=== PATIENT | female | born 1985 | race American Indian/Alaskan Native ===

== ENCOUNTER 2021-09-09 09:45 | Outpatient (CLI) | payer MEDICAID ==
--- NOTE | 2021-09-09 13:39 | Fluoroscopy Report ---
UPPER GI HISTORY: R13.10 DYSPHAGIA,UNSPECIFIED. TECHNIQUE: Single and double contrast barium technique utilized to evaluate the esophagus, stomach, and duodenal C-loop. FINDINGS: To begin the exam, swallowing was evaluated in the lateral position under direct fluorosco py. Swallowing was normal. The esophagus is normal caliber and mucosal pattern throughout with normal motility. No hiatal hernia or reflux was witnessed during this exam. There is normal filling of the gastric cavity. No mucosal defect or ulceration is identified. Gastric motility appeared decreased throughout this examination. Multiple proximal small bowel loops are unremarkable. IMPRESSION: Little if any gastric peristalsis was witnessed during this exam suggesting gastroparesi s. No evidence for hiatal hernia, reflux or mucosal defect. Fluoroscopic time: 5.6 minutes Number of fluoroscopic images: 27 Signer Name: Lion Hernandez Jr, MD Signed: 09/09/2021 1:34 PM Workstation Name: [id number]
== END 2021-09-09 09:46 | disposition home or self-care (01) ==
LOC: FLUORO 09:45
PROVIDERS: ATTEND Internal Medicine
DX: R13.10 Dysphagia, unspecified (principal); R10.0 Acute abdomen
CPT/HCPCS: 74246